=== PATIENT | female | born 1940 | race Caucasian/White ===

== ENCOUNTER 2021-08-22 10:22 | Observation (INO) | payer MEDICARE ==
[2021-08-22] MEDS ORDERED: Acetaminophen 325 MG TAB PO PRN (11:41)
[2021-08-22] MEDS ORDERED: Nitroglycerin 0.4 MG TAB (25 Tab Bottle) SL PRN (11:41)
[2021-08-22] MEDS ORDERED: Electrolyte Replacement Protocol 1 EACH FS SCH (12:00)
[2021-08-22] MEDS: PHOS-NAK 1 PKT PACK PO SCH ×2 (12:30→16:01)
[2021-08-22 12:42] VITALS: BMI 17.3
[2021-08-22 13:29] LABS: Troponin I 0.014 ng/mL (< 0.028)
[2021-08-22 15:09] LABS: Troponin I 0.014 ng/mL (< 0.028)
[2021-08-22] MEDS ORDERED: hydrALAZINE 20 MG/ML VIAL SLOW IVP PRN (17:02)
[2021-08-22] MEDS: buPROPion HCl 100 MG TAB PO SCH (20:34)
[2021-08-22] MEDS ORDERED: Mirtazapine 15 MG TAB PO SCH (21:00)
[2021-08-22] MEDS ORDERED: DONEPEZIL HCL 23 MG PO SCH (21:00)
[2021-08-22] MEDS ORDERED: Rosuvastatin 20 MG TAB PO SCH (21:00)
[2021-08-22] MEDS: Valsartan 80 MG TAB PO SCH (22:02)
[2021-08-22] MEDS: hydrALAZINE 25 MG TAB PO SCH (22:02)
[2021-08-23 00:56] LABS: SARS-CoV-2 PCR by NAA Not Detected (NotDetected)
[2021-08-23 04:45] LABS: #Eosinphils 0.1 10x3/uL (0.0-0.5); #Monocytes 0.3 10x3/uL (0.0-1.1); #Neutrophils 1.5 10x3/uL (1.5-8.4); %Basophils 0.6 % (0.0-2.0); %Eosinophils 3.9 % (0.0-6.0); %Lymphocytes 43.5 % (18.0-47.0); %Monocytes 9.4 % (0.0-10.0); %Neutrophils 42.6 % (40.0-75.0); Mean Corpuscular Hemoglobin 30.6 pg (27.0-33.0); Mean Platelet Volume 10.8 fl (7.4-10.4); Platelet Count 148 10x3/uL (150-450); RBC Distribution Width 13.8 % (11.5-14.5); White Blood Cell (WBC) Count 3.6 10x3/uL (3.5-10.5)
[2021-08-23 04:53] LABS: Anion Gap 13 mmol/L (10-20); BUN (Urea Nitrogen) 15 mg/dL (9.8-20.1); Calc. Creatinine Clearance 51 mL/min (70-130); Calcium 9.2 mg/dL (7.8-10.44); Carbon Dioxide 26 mmol/L (23-31); Cardiac Risk 2.6 (Less than 4.5); Chloride 111 mmol/L (98-107); Cholesterol 120 mg/dl (< 200 Desired); Glucose 92 mg/dL (83-110); HDL Cholesterol 46 mg/dL (>60 Neg Risk); LDL Cholesterol, Calculated 59 mg/dL; Phosphorus 3.9 mg/dL (2.3-4.7); Potassium 3.4 mmol/L (3.5-5.1); Sodium 147 mmol/L (136-145); Triglycerides 73 mg/dL (Less than 150)
[2021-08-23] MEDS ORDERED: Levothyroxine Sodium 88 MCG TAB PO SCH (06:00)
[2021-08-23] MEDS ORDERED: Potassium Chloride 20 MEQ TAB PO SCH ×2 (06:00→09:00)
[2021-08-23] MEDS ORDERED: Aspirin 81 mg Enteric Coated Tablet PO SCH (09:00)
[2021-08-23] MEDS: buPROPion HCl 100 MG TAB PO SCH (10:26)
[2021-08-23] MEDS: Valsartan 80 MG TAB PO SCH (10:26)
[2021-08-23] MEDS: hydrALAZINE 25 MG TAB PO SCH (10:27)
[2021-08-23 15:50] VITALS: BP 124/64; TEMP 97.5
== END 2021-08-23 15:50 | disposition home or self-care (01) ==
LOC: INTOOBSV 10:22 → CSHTELE 10:22
PROVIDERS: ADMIT Internal Medicine; ATTEND Internal Medicine
DX: R07.2 Precordial pain (principal); I10 Essential (primary) hypertension; E78.5 Hyperlipidemia, unspecified; Z87.891 Personal history of nicotine dependence; K21.9 Gastro-esophageal reflux disease without esophagitis; F03.90 Unspecified dementia, unspecified severity, without behavioral disturbance, psychotic disturbance, mood disturbance, and anxiety; Z79.899 Other long term (current) drug therapy; Z79.82 Long term (current) use of aspirin; R63.4 Abnormal weight loss; E83.39 Other disorders of phosphorus metabolism; F41.9 Anxiety disorder, unspecified; F32.A Depression, unspecified; E03.9 Hypothyroidism, unspecified; Z20.822 Contact with and (suspected) exposure to COVID-19
CPT/HCPCS: 80048; 80061; 84100; 84484 ×2; 85025; 93005 ×2; 93306; 96374; 97116; 97139 ×2; 97535; G0378 ×2; U0003; U0005; 36415; 93010; J0360

== ENCOUNTER 2023-01-31 13:00 | Outpatient (CLI) | payer MEDICARE, BC ==
[~2023-01-31 13:00] MED LIST: Iopamidol 300 61% 100 ML VIAL FS ONE
== END 2023-01-31 13:01 | disposition home or self-care (01) ==
LOC: CSHCT 13:00
PROVIDERS: ATTEND Urology
DX: N28.89 Other specified disorders of kidney and ureter (principal); R35.0 Frequency of micturition; F03.90 Unspecified dementia, unspecified severity, without behavioral disturbance, psychotic disturbance, mood disturbance, and anxiety; M43.8X4 Other specified deforming dorsopathies, thoracic region; Z96.641 Presence of right artificial hip joint
CPT/HCPCS: 71260; 74178; Q9967

== ENCOUNTER 2023-09-17 21:41 | Observation (INO) | payer MEDICARE, BC ==
[2023-09-17 22:25] VITALS: BMI 24.4
[2023-09-17] MEDS ORDERED: Senokot S 8.6-50 MG TAB PO PRN (22:37)
[2023-09-17] MEDS ORDERED: Calcium Carbonate 500 MG ChewTAB PO PRN (22:37)
[2023-09-17] MEDS ORDERED: Ondansetron PF 4 MG/2 ML Vial IVP PRN (22:37)
[2023-09-17] MEDS ORDERED: Acetaminophen 325 MG TAB PO PRN (22:37)
[2023-09-17] MEDS ORDERED: Guaifenesin DM 100-10/5 ML UDCUP PO PRN (22:37)
[2023-09-17] MEDS: Mirtazapine 15 MG TAB PO SCH (23:14)
[2023-09-17] MEDS: Lactated Ringer's 500 ML IV SCH (23:14)
[2023-09-17] MEDS: Nitroglycerin 2% Ointment 1 INCH/1 GM Packet TOP SCH (23:14)
[2023-09-17] MEDS: Donepezil HCl 5 MG TAB PO SCH (23:15)
[2023-09-17 23:25] LABS: Troponin I Less than 0.010 ng/mL (< 0.028)
[2023-09-18] MEDS: Nitroglycerin 0.4 MG TAB (25 Tab Bottle) SL PRN (04:05)
[2023-09-18 04:11] LABS: Anion Gap 11 mmol/L (10-20); BUN (Urea Nitrogen) 18 mg/dL (9.8-20.1); Calc. Creatinine Clearance 67 mL/min (70-130); Calcium 8.9 mg/dL (7.8-10.44); Carbon Dioxide 21 mmol/L (23-31); Chloride 115 mmol/L (98-107); Estimated GFR 87; Glucose 98 mg/dL (83-110); Potassium 3.6 mmol/L (3.5-5.1); Sodium 143 mmol/L (136-145)
[2023-09-18 04:13] LABS: #Basophils 0.01 10x3/uL (0.0-0.2); #Eosinphils 0.07 10x3/uL (0.0-0.5); #Monocytes 0.35 10x3/uL (0.0-1.1); #Neutrophils 3.02 10x3/uL (1.5-8.4); %Basophils 0.2 % (0.0-2.0); %Eosinophils 1.5 % (0.0-6.0); %Lymphocytes 26.5 % (18.0-47.0); %Monocytes 7.4 % (0.0-10.0); Hematocrit 33.1 % (34.9-44.5); Hemoglobin 11.2 g/dL (12.0-15.5); Mean Corpuscular HGB CONC 33.8 g/dL (32.0-36.0); Mean Corpuscular Hemoglobin 30.4 pg (27.0-33.0); Mean Corpuscular Volume 89.7 fL (81.6-98.3); Mean Platelet Volume 10.1 fL (7.4-10.4); Platelet Count 150 10x3/uL (150-450); Red Blood Cell (RBC) Count 3.69 10x6/uL (3.90-5.03); White Blood Cell (WBC) Count 4.7 10x3/uL (3.5-10.5)
[2023-09-18] MEDS: Morphine 2 MG/ML VIAL SLOW IVP SCH (04:20)
[2023-09-18] MEDS: Levothyroxine Sodium 88 MCG TAB PO SCH (06:07)
[2023-09-18] MEDS: Isosorbide Mononitrate 60 MG ER.TAB PO SCH (09:00)
[2023-09-18] MEDS: Donepezil HCl 5 MG TAB PO SCH (09:06)
[2023-09-18] MEDS: Multivit, Therapeutic 1 TAB PO SCH (09:07)
[2023-09-18] MEDS: Pantoprazole DR 40 MG TAB PO SCH (09:07)
[2023-09-18] MEDS: Aspirin 81 mg Enteric Coated Tablet PO SCH (09:07)
[2023-09-18] MEDS: Amlodipine 5 MG TAB PO SCH (09:07)
[2023-09-18] MEDS: Potassium Chloride 10 MEQ TAB PO SCH (09:07)
[2023-09-18] MEDS: Losartan 25 MG TAB PO SCH (09:07)
[2023-09-18] MEDS: Enoxaparin 40 MG (0.4 mL) SYRINGE SC SCH (09:09)
[2023-09-18] MEDS ORDERED: Morphine 2 MG/ML VIAL SLOW IVP PRN (09:29)
[2023-09-18 10:35] LABS: Troponin I 0.029 ng/mL (< 0.028)
[2023-09-18] MEDS: Pantoprazole 40 MG VIAL IVP SCH (10:52)
[2023-09-18] MEDS: Nitroglycerin 2% Ointment 1 INCH/1 GM Packet TOP SCH (11:03)
[2023-09-18] MEDS: Lidocaine 2% Viscous 10 mL, Alum & Magn 30 mL SSW SCH (12:40)
[2023-09-18] MEDS: Lidocaine 2% Viscous Solution 20 ML, Aluminum & Magnesium Hydroxide 30 ML, Donnatal Eli... SSW SCH (16:41)
[2023-09-18] MEDS: Mirtazapine 15 MG TAB PO SCH (20:54)
[2023-09-18] MEDS: Rosuvastatin 20 MG TAB PO SCH (20:56)
[2023-09-18] MEDS: Ranolazine ER 500 MG TAB PO SCH (20:56)
[2023-09-18] MEDS ORDERED: Nitroglycerin 2% Ointment 1 INCH/1 GM Packet TOP SCH (21:00)
[2023-09-19] MEDS: Levothyroxine Sodium 100 MCG TAB PO SCH (06:06)
[2023-09-19] MEDS: Pantoprazole 40 MG VIAL IVP SCH (08:20)
[2023-09-19] MEDS: Isosorbide Mononitrate 60 MG ER.TAB PO SCH (12:06)
[2023-09-19 12:28] VITALS: TEMP 97.3
[2023-09-19 12:32] VITALS: BP 143/69
[2023-09-19] MEDS: Memantine 5 MG TAB PO SCH (12:33)
[2023-09-20] MEDS ORDERED: Memantine 5 MG TAB PO SCH (09:00)
== END 2023-09-19 13:40 | disposition home health service (06) ==
LOC: INTOOBSV 21:41 → CSHTELE 21:41
PROVIDERS: ADMIT Student in an Organized Health Care Education/Training Program; ATTEND Family Medicine
DX: R07.2 Precordial pain (principal); E78.5 Hyperlipidemia, unspecified; I10 Essential (primary) hypertension; I25.10 Atherosclerotic heart disease of native coronary artery without angina pectoris; K21.9 Gastro-esophageal reflux disease without esophagitis; E03.9 Hypothyroidism, unspecified; F03.90 Unspecified dementia, unspecified severity, without behavioral disturbance, psychotic disturbance, mood disturbance, and anxiety; Z87.891 Personal history of nicotine dependence; Z79.890 Hormone replacement therapy; Z79.82 Long term (current) use of aspirin; Z79.899 Other long term (current) drug therapy; Z90.89 Acquired absence of other organs; Z88.0 Allergy status to penicillin; R07.89 Other chest pain; E11.9 Type 2 diabetes mellitus without complications
CPT/HCPCS: 71045 ×2; 80048; 80053; 83880; 84443; 84484 ×4; 85025 ×2; 85379; 93005 ×2; 94760; 94762; 96372 ×2; 96374; 96375; 96376; 97116; 97535; 99285; C9113 ×2; G0378 ×3; J1650 ×2; J2272; J7120; 36415; 36416; 93010